=== PATIENT | female | born 1995 | race Caucasian/White ===

== ENCOUNTER 2023-06-30 23:29 | Emergency (ER) | payer MEDICAID, SELFPAY ==
[2023-06-30 23:36] VITALS: BP 124/79; PULSE 101; RESP 18; TEMP 36.3; O2SAT 95; BMI 31.6
[2023-07-01] LABS: MANUAL DIFF FLAG NO
[2023-07-01 00:01] LABS: Basophils Absolute Auto 0.1 X10*3/uL (0.0-0.2); Basophils Percent Auto 0.8 % (0-2); Eosinophils Absolute Auto 0.4 X10*3/uL (0.0-0.4); Eosinophils Percent Auto 4.1 % (0-4); Hematocrit 38.2 % (37.0-47.0); Hemoglobin 13.1 g/dl (12.0-16.0); Imm Gran Abs Auto 0.03 X10*3/uL (0.00-0.03); Imm Gran Pct Auto 0.3 % (0.0-0.4); Lymphocytes Absolute Auto 2.8 X10*3/uL (1.2-4.9); Lymphocytes Percent Auto 30.2 % (20-40); Mean Corpuscular HGB Conc 34.3 g/dl (31.0-35.0); Mean Corpuscular Hemoglobin 32.1 pg (27.0-33.0); Mean Corpuscular Volume 93.6 fL (80.0-98.0); Mean Platelet Volume 8.8 fL (9.4-12.3); Monocytes Absolute Auto 0.6 X10*3/uL (0.1-1.2); Monocytes Percent Auto 6.6 % (2-11); Neutrophils Absolute Auto 5.4 x10*3/uL (2.0-8.3); Platelet Count 232 X10*3/uL (160-400); Red Blood Count 4.08 X10*6/uL (4.20-5.50); Red Cell Distribution Width 12.1 % (11.0-16.0); White Blood Count 9.3 X10*3/uL (4.8-10.8)
[2023-07-01 00:03] LABS: Appearance Urine Clear; Color Urine Yellow; Glucose Urine UA Negative (Negative); Leukocyte Esterase Urine Trace (Negative); Nitrite Urine Negative (Negative); PH 5.5 (5.0-9.0); Specific Gravity - Urine >= 1.030 (1.005-1.025); UMIC TRIGGER UACC YES; Urine Blood Trace (Negative); Urine Ketones Trace mg/dL (Negative); Urine Protein Trace mg/dL (Neg-Trace)
[2023-07-01 00:13] LABS: Bacteria Urine None Seen (None Seen); Hyaline Casts Urine 0-2 /LPF (0-2); UACC Culture Trigger YES; WBC Urine 21-50 /HPF (0-5)
[2023-07-01 00:15] LABS: Anion Gap 10 (12-20); Blood Urea Nitrogen 13 mg/dL (9-16); Calcium 10.1 mg/dL (8.4-10.2); Carbon Dioxide 27 mmol/L (22-29); Chloride 104 mmol/L (96-108); Creatinine Clr Calc Pharmacy 135.9; Estimated Glomerular Filt Rate > 60; Glucose Random 98 mg/dL (60-115); Potassium 4.1 mmol/L (3.3-5.1); Sodium 137 mmol/L (135-145)
[2023-07-01 02:31] VITALS: BP 121/83; PULSE 86; RESP 16; TEMP 36.7; O2SAT 98
--- NOTE | 2023-07-01 03:13 | ED_ITS ---
HPI - Female Genitourinary General Chief complaint: Urogenital-Female Stated complaint: uro gen female Time Seen by Provider: 07/01/23 03:13 History of Present Illness HPI Narrative: The patient is a 28-year-old female who says that she had to interrupt sexual intercourse with her boyfriend tonight because of discomfort. She then went to the bathroom and found significant discomfort with passing urine. She has had no vaginal discharge. No fever, sweats, chills. She says she is monogamous with her boyfriend and has been with him for about 2 or 3 years. She believes that her partner is similarly monogamous. The patient has been feeling fine before the sexual encounter. No flank pain. No nausea or vomiting. She has had urinary frequency, urgency, and dysuria. Related Data Previous Rx's ?Medication ?Instructions ?Recorded cephalexin 500 mg capsule 500 mg PO BID #10 caps 07/01/23 Allergies Allergy/AdvReac Type Severity Reaction Status Date / Time mushroom Allergy Anaphylaxis Unverified 06/30/23 23:39 Review of Systems 2 Review of Systems: Yes all other systems are reviewed and are negative REPLACED BY [facility] Social History Social History Advance Directives: No Advance Directives Information Provided: No Do you have a plan to hurt others: No Plan Physical Exam 2 Vital Signs: Vital Signs: Last Vital Signs Temp 98 F 07/01/23 03:55 Pulse 86 07/01/23 03:55 Resp 16 07/01/23 03:55 BP 121/83 07/01/23 03:55 Pulse Ox 98 07/01/23 03:55 O2 Del Method Room Air 07/01/23 03:55 BMI result Body Mass Index 31.6 Const: Other: The patient is awake, alert, pleasant, cooperative. She looks somewhat chronically ill but not acutely ill. HEENT: Other: The patient is edentulous. Mucous membranes moist. Eyes: Other: No scleral icterus Resp: Effort & Inspection: normal respiratory effort Auscultation: clear to auscultation bilaterally Cardio: Rate: regular rate Rhythm: regular rhythm Heart sounds: S1 normal heart sound present and S2 normal heart sound present GI: Other: Abdomen is soft and nontender : General: Yes no CVA tenderness Back/Spine/Pelvis: Back: no CVA tenderness Skin: Other: Skin is pale and dry Neuro: Other: Awake, alert, normal mental status, grossly neurologically intact Extrem: Other: No peripheral edema Medications Administered Discontinued Medications Generic Name Dose Route Start Last Admin Trade Name Michelle PRN Reason Stop Dose Admin Cephalexin HCl 500 mg 07/01/23 03:35 07/01/23 03:38 Cephalexin 500 Mg Capsule PO 07/01/23 03:36 500 mg ONCE ONE Administration Medical Decision Making Medical Decision Making [facility] Narrative: The patient is 28-year-old female who comes to the emergency room after experiencing painful intercourse and dysuria. She is here with her boyfriend of 2 or 3 years with whom she says she is monogamous and whom she believes to be a monogamous as well. Her urinalysis is consistent with a UTI. Her test is negative. I suspect that she has a UTI. I doubt that she has an STI. She will be started on cephalexin. Lab Data 06/30/23 23:52 06/30/23 23:52 Labs: Lab Results 06/30/23 06/30/23 Range/Units 23:52 23:55 WBC 9.3 (4.8-10.8) X10*3/uL RBC 4.08 L (4.20-5.50) X10*6/uL Hgb 13.1 (12.0-16.0) g/dl Hct 38.2 (37.0-47.0) % MCV 93.6 (80.0-98.0) fL MCH 32.1 (27.0-33.0) pg MCHC 34.3 (31.0-35.0) g/dl RDW 12.1 (11.0-16.0) % Plt Count 232 (160-400) X10*3/uL MPV 8.8 L (9.4-12.3) fL Immature Gran % (Auto) 0.3 (0.0-0.4) % Neut % (Auto) 58.0 (45-73) % Lymph % (Auto) 30.2 (20-40) % [place] % (Auto) 6.6 (2-11) % Eos % (Auto) 4.1 H (0-4) % Baso % (Auto) 0.8 (0-2) % Lymph # (Auto) 2.8 (1.2-4.9) X10*3/uL [place] # (Auto) 0.6 (0.1-1.2) X10*3/uL Eos # (Auto) 0.4 (0.0-0.4) X10*3/uL Baso # (Auto) 0.1 (0.0-0.2) X10*3/uL Abs Immat Gran (auto) 0.03 (0.00-0.03) X10*3/uL Absolute Neuts (auto) 5.4 (2.0-8.3) x10*3/uL Absolute Nucleated RBC 0.000 (0.0-0.012) X10*3/uL Nucleated RBC % (auto) 0.0 (0.0-0.2) /100WBC Sodium 137 (135-145) mmol/L Potassium 4.1 (3.3-5.1) mmol/L Chloride 104 (96-108) mmol/L Carbon Dioxide 27 (22-29) mmol/L Anion Gap 10 L (12-20) BUN 13 (9-16) mg/dL Creatinine 0.68 (0.5-1.4) mg/dL Estim Creat Clear Calc 135.9 Estimated GFR > 60 Random Glucose 98 (60-115) mg/dL Calcium 10.1 (8.4-10.2) mg/dL C-Reactive Protein 0.75 H (< or = 0.50) mg/dL Urine Color Yellow Urine Appearance Clear Urine pH 5.5 (5.0-9.0) Ur Specific Round O >= 1.030 H (1.005-1.025) Urine Protein Trace (Neg-Trace) mg/dL Urine Glucose (UA) Negative (Negative) mg/dL Urine Ketones Trace (Negative) mg/dL Urine Blood Trace H (Negative) Urine Nitrite Negative (Negative) Ur Leukocyte Esterase Trace H (Negative) Urine RBC 3-5 H (0-2) /HPF Urine WBC 21-50 H (0-5) /HPF Ur Squamous Epith Cells 6-10 (0-2) /HPF Urine Bacteria None Seen (None Seen) Hyaline Casts 0-2 (0-2) /LPF Urine Test NEGATIVE (NEGATIVE) Discharge Plan Discharge Clinical Impression: Urinary tract infection Patient Disposition: Home, Self-Care Instructions: Urinary Tract Infection in Women (ED) Additional Instructions: You have been started on an antibiotic for a urinary tract infection. 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 Please complete the whole prescription. Drink lot of fluids. Please keep your appointment with the urology office on Tuesday as scheduled. Also keep your appointment with your new primary care doctor in October. Return to the emergency room if you feel significantly worse at any time especially if you develop a fever, flank pain, or vomiting. Prescriptions: New cephalexin 500 mg capsule 500 mg PO BID Qty: 10 0RF Referrals: Herlinda Velasco MD [Physician] - (Urinary tract infection) Interventions: ED Discharge Assessment Last Done: 07/01/23 03:55 Discharge Date/Time: 07/01/23 03:56 Print Language: Indonesian
[2023-07-01 03:37] LABS: C Reactive Protein 0.75 mg/dL (< or = 0.50)
[2023-07-01] MEDS: cephALEXin 500 MG CAPSULE PO (03:38)
[2023-07-01 03:43] LABS: UPreg QC Valid YES; Urine Pregnancy NEGATIVE (NEGATIVE)
[2023-07-01 03:55] VITALS: BP 121/83; PULSE 86; RESP 16; TEMP 36.6; O2SAT 98
== END 2023-07-01 03:56 | disposition home or self-care (01) ==
PROVIDERS: Emergency Provider Emergency Medicine
DX: N39.0 Urinary tract infection, site not specified (principal)
CPT/HCPCS: 36415; 80048; 81001; 81003; 81025; 85025; 86140; 87086; 99283; 99284